=== PATIENT | male | born 1940 | race Caucasian/White ===

== ENCOUNTER 2017-02-12 08:00 | Observation (INO) ==
--- NOTE | 2017-02-12 07:58 | Emergency Department Note ---
Disposition Clinical Impression: Chest pain Qualifiers: Chest pain type: unspecified Qualified Code(s): R07.9 - Chest pain, unspecified Disposition: Admitted As Inpatient Chest Pain HPI - General Chief Complaint: ED Chest Pain Stated Complaint: chest and arm pain Time Seen by Provider: 02/12/17 07:40 Source: patient, family, EMS Mode of arrival: EMS Limitations: no limitations Vital Signs Reviewed: Yes Nursing Notes Reviewed: Yes - History of Present Illness HPI Narrative: Patient presents for evaluation of left-sided chest pain. Radiation to the arm. Pain started on Friday and has been intermittent in nature. Patient describes it as episodes of sharp pain followed by episodes of a less sharp dull ache. Patient's symptoms have not been correlated to any certain exacerbating factor. Patient states better with rest. Patient states associated difficult to getting his breath. Radiation of pain to the arm this morning had his concerned about possible cardiac etiology. Patient has no previous history of heart disease. He does have a history of vascular problems in his lower extremities which he sees Dr. Carreno and placed on aspirin and Plavix. Patient does have a history of a recent fall little over a week ago that was seen and evaluated in the emergency department and diagnosed with a thoracic spine fracture. The patient is attempting to be scheduled for a possible kyphoplasty. is concerned because he needs come off his Plavix. They are waiting to discuss with vascular surgery if this is a good idea. - Related Data Home Medications Medication Instructions Recorded Confirmed Atenolol 100 mg PO DAILY 02/12/17 02/12/17 Atorvastatin Calcium [Lipitor] 20 mg PO QPM 02/12/17 02/12/17 Clopidogrel [Plavix] 75 mg PO DAILY 02/12/17 02/12/17 Cyclobenzaprine [Flexeril] 10 mg PO BID PRN 02/12/17 02/12/17 Ferrous Sulfate [Iron] 325 mg PO BID 02/12/17 02/12/17 HYDROcodone/Acet 5/325 mg [[place] 1 tab PO Q4-6H PRN 02/12/17 02/12/17 5-325 mg] Levothyroxine [Synthroid] 150 mcg PO DAILY 02/12/17 02/12/17 Lisinopril [Zestril] 40 mg PO DAILY 02/12/17 02/12/17 Meloxicam [Mobic] 7.5 mg PO DAILY 02/12/17 02/12/17 Ropinirole HCl [Requip] 0.25 mg PO HS 02/12/17 02/12/17 Tamsulosin [Flomax] 0.4 mg PO DAILY 02/12/17 02/12/17 Xyzal 5 mg PO DAILY 02/12/17 clonazePAM [Klonopin] 0.5 mg PO DAILY 02/12/17 02/12/17 hydroCHLOROthiazide 25 mg PO DAILY 02/12/17 02/12/17 [Hydrochlorothiazide] Allergies Allergy/AdvReac Type Severity Reaction Status Date / Time No Known Allergies Allergy Verified 02/12/17 08:40 Review of Systems: CONSTITUTIONAL: No weight loss, fever, chills, weakness or fatigue. HEENT: Eyes: No visual changes. Ears, Nose, Throat: No hearing loss, difficulty talking or unable to swallow. SKIN: No rash or itching. CARDIOVASCULAR: Chest pain with radiation to left arm RESPIRATORY: No shortness of breath, cough or sputum. GASTROINTESTINAL: No anorexia, nausea, vomiting or diarrhea. No abdominal pain or blood. GENITOURINARY: No burning on urination or hematuria. NEUROLOGICAL: No headache, dizziness, syncope, paralysis, ataxia, numbness or tingling in the extremities. No change in bowel or bladder control. MUSCULOSKELETAL: No muscle pain, back pain, joint pain or stiffness. HEMATOLOGIC: No bleeding or bruising. LYMPHATICS: No enlarged lymphnodes. PSYCHIATRIC: No change to depression or anxiety. ENDOCRINOLOGIC: No reports of heat or cold intolerance, Polyuria ALLERGIES: No history of asthma, hives, eczema or rhinitis. Chest Pain PMH - Past Medical History Medical history: Reports: hyperlipidemia, hypertension Surgical history: Reports: non-contributory Psychiatric history: Reports: no psych history - Social History Smoking Status: Never smoker Alcohol use: Reports: none, occasionally Drug use: Reports: none Physical Exam General: Well appearing, nontoxic, no acute distress Head: Normocephalic Atraumatic Eyes: PERRL, EOMI ENT: Airway patent, no stridor Neck: supple, no meningismus Chest: Lungs clear to auscultation bilateral Cardiac: Regular rate and rhythm, no murmurs, rubs or gallops Abdomen: soft, nontender, nondistended; no guarding, rebound, or tenderness to percussion Musculoskeletal: Calves symmetric, nontender, no palpable cord; patient has no tenderness to palpation of the anterior, lateral aspect of the chest or back. Only panic elicited was with Skin: No rash, normal skin tone Neuro: Alert and Oriented to person, place, and time; No focal deficit, CN 2-12 symmetric and intact Course - Reevaluation(s) Reevaluation #1: Patient has no episode of what he is describing as a sharp chest pain radiating to his back. Patient states pain is severe and wants pain medicine immediately. Morphine has been ordered. Reevaluation #2: The patient was walked to the restroom. Upon walking back he will had to be placed on his cot and will back secondary to the pain that he was having. The patient is a poor historian and some is now stating that he is unsure what is causing his pain. He was specific about this being chest pain earlier on arrival. Patient's history is complicated with fact previous fall and trauma. Patient has been more balance but has no focal deficits on exam today. 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 We will perform a CTA of his chest and abdomen to rule out dissection. Patient will then be admitted for further evaluation of chest pain. Reevaluation #3: Patient has complained of several episodes of intermittent severe chest pain has been treated with multiple doses of morphine. Patient is also had back pain. His CTA is negative. Patient is been accepted by the hospitalist service. - Consultations Consultation #1: Dr. Fofana accepts. Vital Signs Temperature 97.6 F 02/12/17 07:44 Pulse Rate 77 02/12/17 07:44 Respiratory Rate 14 02/12/17 07:44 Blood Pressure 169/76 02/12/17 07:44 O2 Sat by Pulse Oximetry 98 02/12/17 07:44 Temperature 97.6 F 02/12/17 07:44 Pulse Rate 65 02/12/17 11:50 Respiratory Rate 14 02/12/17 11:50 Blood Pressure 129/72 02/12/17 11:50 O2 Sat by Pulse Oximetry 97 02/12/17 11:50 Oxygen Delivery Oxygen Delivery Room Air Chest Pain - Lab Data Result diagrams: 02/12/17 08:08 02/12/17 08:08 Lab Results 02/12/17 02/12/17 02/12/17 Range/Units 08:08 08:08 08:08 WBC 9.1 (4.3-11.1) K/mcL RBC 3.99 L (4.19-5.50) M/mcL Hgb 12.7 L (12.9-16.9) g/dL Hct 37.6 (37.5-50.1) % MCV 94.2 (83.0-100.0) fL MCH 31.8 (28.0-33.3) pg MCHC 33.8 (31.6-35.5) g/dL RDW 14.1 (11.5-14.5) % Plt Count 224 (140-400) K/mcL MPV 9.1 L (9.4-12.4) fL Immature Gran % 3.3 (0-4) % Seg Neutrophils % 64.2 % Lymphocytes % 19.4 % Monocytes % 9.7 % Eosinophils % 2.7 % Basophils % 0.7 % Neutrophils # 5.8 (1.6-8.9) K/mcL Lymphocytes # 1.8 (0.6-4.6) K/mcL Monocytes # 0.9 (0.0-1.3) K/mcL Eosinophils # 0.2 (0.0-0.6) K/mcL Basophils # 0.1 (0.0-0.2) K/mcL PT 10.5 (9.4-12.1) Seconds INR 1.0 APTT 26.1 (26.0-36.0) Seconds Sodium (136-145) mEq/L Potassium (3.5-4.5) mEq/L Chloride (98-109) mEq/L Carbon Dioxide (19-29) mEq/L BUN (8-26) mg/dL Creatinine (0.72-1.25) mg/dL Est GFR ( Amer) (> 60) Est GFR (Non-Af Amer) (> 60) BUN/Creatinine Ratio (6-26) Glucose (70-99) mg/dL Calculated Osmolality (280-300) Calcium (8.6-10.8) mg/dL Troponin I (0-0.03) ng/mL B-Natriuretic Peptide 64 (0-100) pg/mL 02/12/17 02/12/17 Range/Units 08:08 08:08 WBC (4.3-11.1) K/mcL RBC (4.19-5.50) M/mcL Hgb (12.9-16.9) g/dL Hct (37.5-50.1) % MCV (83.0-100.0) fL MCH (28.0-33.3) pg MCHC (31.6-35.5) g/dL RDW (11.5-14.5) % Plt Count (140-400) K/mcL MPV (9.4-12.4) fL Immature Gran % (0-4) % Seg Neutrophils % % Lymphocytes % % Monocytes % % Eosinophils % % Basophils % % Neutrophils # (1.6-8.9) K/mcL Lymphocytes # (0.6-4.6) K/mcL Monocytes # (0.0-1.3) K/mcL Eosinophils # (0.0-0.6) K/mcL Basophils # (0.0-0.2) K/mcL PT (9.4-12.1) Seconds INR APTT (26.0-36.0) Seconds Sodium 131 L (136-145) mEq/L Potassium 4.2 (3.5-4.5) mEq/L Chloride 93 L (98-109) mEq/L Carbon Dioxide 29 (19-29) mEq/L BUN 18 (8-26) mg/dL Creatinine 0.96 (0.72-1.25) mg/dL Est GFR ( Amer) > 60 (> 60) Est GFR (Non-Af Amer) > 60 (> 60) BUN/Creatinine Ratio 19 (6-26) Glucose 112 H (70-99) mg/dL Calculated Osmolality 275 L (280-300) Calcium 9.8 (8.6-10.8) mg/dL Troponin I 0.00 (0-0.03) ng/mL B-Natriuretic Peptide (0-100) pg/mL Attestation Statement - Attestation Attestation: I examined this patient and my medical decision-making was reviewed with the Resident Physician. I agree with the documented findings, disposition and treatment plan as described except to the extent set forth below. Patient to the emergency department complaining of left-sided chest pain. Patient states the pains are left-sided his chest and radiates to the front. He does have a remote history of a fall in a T2 compression fracture. He is under the care of a automated logistics specialist in [place] for this. He is scheduled to have a procedure done soon. Patient has no history of coronary disease. He does have a history of peripheral arterial disease with an abnormal JOSE MARTIN in his left leg. Patient's pain-free on his arrival here. Exam shows him in no distress. He has no reducible tenderness over his spine on our evaluation. Plan. Cardiac workup.
[~2017-02-12 08:00] MED LIST: Aspirin 81 MG TAB.CHEW PO ONE
[2017-02-12] MEDS ORDERED: *HR* Morphine 2 MG/ML SYRINGE IVP ONE (08:01)
[2017-02-12] MEDS ORDERED: Ondansetron 4 MG/2 ML VIAL IVP ONE (08:01)
[2017-02-12 08:24] LABS: Basophils # 0.1 K/mcL (0.0-0.2); Basophils % 0.7 %; Eosinophils # 0.2 K/mcL (0.0-0.6); Eosinophils % 2.7 %; Hematocrit 37.6 % (37.5-50.1); Hemoglobin 12.7 g/dL (12.9-16.9); Immature Granulocytes % 3.3 % (0-4); Lymphocytes # 1.8 K/mcL (0.6-4.6); Lymphocytes % 19.4 %; Mean Corpuscular HGB Conc 33.8 g/dL (31.6-35.5); Mean Corpuscular Hemoglobin 31.8 pg (28.0-33.3); Mean Corpuscular Volume 94.2 fL (83.0-100.0); Mean Platelet Volume 9.1 fL (9.4-12.4); Monocytes # 0.9 K/mcL (0.0-1.3); Monocytes % 9.7 %; Neutrophils # 5.8 K/mcL (1.6-8.9); Platelet Count 224 K/mcL (140-400); Red Blood Count 3.99 M/mcL (4.19-5.50); Red Cell Distribution Width 14.1 % (11.5-14.5); Segmented Neutrophils % 64.2 %
[2017-02-12 08:32] LABS: Prothrombin Time 10.5 Seconds (9.4-12.1)
[2017-02-12 08:34] LABS: Activated Partial Thrombo Time 26.1 Seconds (26.0-36.0)
[2017-02-12 08:38] LABS: BUN/Creatinine Ratio 19 (6-26); Blood Urea Nitrogen 18 mg/dL (8-26); Calcium 9.8 mg/dL (8.6-10.8); Carbon Dioxide 29 mEq/L (19-29); Chloride 93 mEq/L (98-109); Glucose 112 mg/dL (70-99); Osmolality,Calculated 275 (280-300); Potassium 4.2 mEq/L (3.5-4.5); Sodium 131 mEq/L (136-145); eGFR For African Americans > 60 (> 60); eGFR For Non-African Americans > 60 (> 60)
[2017-02-12] MEDS ORDERED: *HR* Morphine 2 MG/ML SYRINGE IVP PRN ×2 (09:16→17:18)
[2017-02-12] MEDS: Nitroglycerin 0.4 MG TAB.SUBL SL PRN ×2 (09:25→17:34)
--- NOTE | 2017-02-12 11:34 | Internal Med History&Physical ---
Date of Encounter: 02/12/17 Time of Encounter: 11:31 Assessment and Plan (1) PVD (peripheral vascular disease) Current visit: Yes Status: Acute Continue Plavix (2) Hypertension Current visit: Yes Status: Acute Continue home blood pressure medications Qualifiers: Qualified Code(s): I10 - Essential (primary) hypertension (3) Chest pain Current visit: Yes Status: Acute Electrocardiogram shows no ST segment shifts. Will Check serial troponin. Cardiology consultation Qualifiers: Chest pain type: unspecified Qualified Code(s): R07.9 - Chest pain, unspecified (4) Hyponatremia Current visit: Yes Status: Acute Mild hyponatremia related to hydrochlorothiazide therapy (5) T2 vertebral fracture Current visit: Yes Status: Acute Patient was evaluated by spine surgeon who plan to kyphoplasty. Qualifiers: Qualified Code(s): S22.029A - Unspecified fracture of second thoracic vertebra, initial encounter for closed fracture Internal Medicine - H&P: HPI Chief complaint: chest pain History of present illness: Mr. Vasquez is a 76 year old male with a history of hypertension, dyslipidemia, peripheral vascular disease presents to the emergency room today with the main component of chest pain. At 8 PM after the patient woke up he started experiencing left inframammary chest pain radiating to the left arm lasting for approximately 2 minutes and resolved spontaneously. He had several of these episodes in decided to come to emergency room for further evaluation. He denies any relational exertion to the pain. Denies any prior similar episodes. He has been complaining also pain in the left scapular [place]. He had a fall about a week ago and sustained fracture of 2nd thoracic vertebral and has been complaining of intermittent back pain and left scapular pain since then. Past Med Surg Social Fam HX - Past Medical History Medical history: hyperlipidemia, hypertension Psychiatric history: no psych history - Past Surgical History Surgical History: non-contributory - Social History Smoking Status: Never smoker Smokeless Tobacco Status: No Alcohol use: none, occasionally Drug use: none Internal Medicine - H&P: Meds Atenolol 100 mg PO DAILY 02/12/17 [History] Atorvastatin Calcium [Lipitor] 20 mg PO QPM 02/12/17 [History] Clopidogrel [Plavix] 75 mg PO DAILY 02/12/17 [History] Cyclobenzaprine [Flexeril] 10 mg PO BID PRN 02/12/17 [History] Ferrous Sulfate [Iron] 325 mg PO BID 02/12/17 [History] HYDROcodone/Acet 5/325 mg [[place] 5-325 mg] 1 tab PO Q4-6H PRN 02/12/17 [History] Levothyroxine [Synthroid] 150 mcg PO DAILY 02/12/17 [History] Lisinopril [Zestril] 40 mg PO DAILY 02/12/17 [History] Meloxicam [Mobic] 7.5 mg PO DAILY 02/12/17 [History] Ropinirole HCl [Requip] 0.25 mg PO HS 02/12/17 [History] Tamsulosin [Flomax] 0.4 mg PO DAILY 02/12/17 [History] Xyzal 5 mg PO DAILY 02/12/17 [History] clonazePAM [Klonopin] 0.5 mg PO DAILY 02/12/17 [History] hydroCHLOROthiazide [Hydrochlorothiazide] 25 mg PO DAILY 02/12/17 [History] 3 Allergy/AdvReac Type Severity Reaction Status Date / Time No Known Allergies Allergy Verified 02/12/17 08:40 All Systems PM: A 10-system review of systems was performed and is negative for pertinent findings except as documented above in the HPI. Review of systems: 10 point review of systems is negative except for HPI - Constitutional Vitals: Temp Pulse Resp BP Pulse Ox 97.6 F 76 14 155/72 97 02/12/17 07:44 02/12/17 10:41 02/12/17 10:41 02/12/17 10:41 02/12/17 10:41 Exam: Gen.: patient is alert oriented times 3 cardiac: normal S1 S2 no additional sounds or murmurs chest: no active wheezing or bronchial breathing abdomen soft nontender nondistended normal bowel sounds lower extremity no swelling. Neuro: no new focal deficits Internal Med - H&P Results - Labs CBC & Chem 7: 02/12/17 08:08 02/12/17 08:08 Labs: Short CBC 02/12/17 Range/Units 08:08 WBC 9.1 (4.3-11.1) K/mcL Hgb 12.7 L (12.9-16.9) g/dL Hct 37.6 (37.5-50.1) % Plt Count 224 (140-400) K/mcL Neutrophils # 5.8 (1.6-8.9) K/mcL BMP 02/12/17 08:08 Sodium 131 L Potassium 4.2 Chloride 93 L Carbon Dioxide 29 BUN 18 Creatinine 0.96 Glucose 112 H Calcium 9.8 Cardiac Enzymes 02/12/17 Range/Units 08:08 Troponin I 0.00 (0-0.03) ng/mL - Impressions ITS Impressions Chest X-Ray 02/12/17 07:54 IMPRESSION: No acute abnormality. D/ / 02/12/2017 08:06:46 Neil Brownlee MD / emily Interpreting Provider: Neil Brownlee MD Abdomen/Pelvis CTA 02/12/17 08:49 IMPRESSION: No evidence of thoracic aortic aneurysm or thoracic aortic dissection. No evidence of abdominal aortic aneurysm or abdominal aortic dissection. Status post cyst stenting of the left common iliac artery, appears patent. Moderate atherosclerotic disease throughout the thoracic aorta, abdominal aorta, and major and major branches. No evidence of aortic hematoma. Mild interval vertebral body height loss involving T2 vertebral body compression fracture, without significant retropulsion into spinal canal. Small nonspecific sclerotic lesion within the T4 vertebral body. Consider correlation with a nuclear medicine bone scan. Mild nonspecific interlobular septal thickening may represent component of pulmonary interstitial edema. Chronic appearing bilateral rib fractures. No evidence of pneumothorax. Moderate colonic stool burden. Moderate stool within the rectal vault. D/ / Jordan Zamora MD / Jordan Zamora MD Interpreting Provider: Jordan Zamora MD Chest CTA 02/12/17 08:55
[2017-02-12 13:27] LABS: Basophils # 0.1 K/mcL (0.0-0.2); Basophils % 0.7 %; Eosinophils # 0.1 K/mcL (0.0-0.6); Eosinophils % 1.2 %; Hematocrit 36.6 % (37.5-50.1); Hemoglobin 12.4 g/dL (12.9-16.9); Immature Granulocytes % 2.1 % (0-4); Lymphocytes # 1.3 K/mcL (0.6-4.6); Lymphocytes % 15.3 %; Mean Corpuscular HGB Conc 33.9 g/dL (31.6-35.5); Mean Corpuscular Volume 94.3 fL (83.0-100.0); Mean Platelet Volume 9.3 fL (9.4-12.4); Monocytes # 0.7 K/mcL (0.0-1.3); Neutrophils # 6.2 K/mcL (1.6-8.9); Platelet Count 215 K/mcL (140-400); Red Blood Count 3.88 M/mcL (4.19-5.50); Red Cell Distribution Width 14.1 % (11.5-14.5); Segmented Neutrophils % 72.7 %
--- NOTE | 2017-02-12 17:35 | Electrocardiograph Report ---
[facility] Test Date: 2017-02-12 Pat Name: Arjun Vasquez Department: 103 Room: 2A42 Gender: M Strip Catcher: MSC : 1940 Requested By: Nghia Haney Order Number: [id number] Reading MD: Anshu Avendaño MD Measurements Intervals [place] Rate: 73 P: 70 NE: 197 QRS: 26 QRSD: 98 T: 38 QT: 370 QTc: 395 Interpretive Statements SINUS RHYTHM SEPTAL MYOCARDIAL INFARCTION [40+ ms Q WAVE IN V1/V2], OF INDETERMINATE AGE INTERPRETATION BASED ON A DEFAULT AGE OF 40 YEARS Electronically Signed On 02-12-2017 17:33:41 EDT by Anshu Avendaño MD
[2017-02-12] MEDS: *HR* HYDROcodone/Acet 5/325 mg TABLET PO PRN (18:23)
[2017-02-12] MEDS ORDERED: rOPINIRole 0.25 MG TABLET PO SCH (21:00)
[2017-02-12] MEDS: *HR* Morphine 2 MG/ML SYRINGE IVP PRN (22:20)
[2017-02-13] MEDS: *HR* Morphine 2 MG/ML SYRINGE IVP PRN (00:22)
[2017-02-13] MEDS ORDERED: *HR* HYDROmorphone (PF) 1 MG/ML SYRINGE IVP PRN (00:27)
[2017-02-13] MEDS: *HR* HYDROcodone/Acet 5/325 mg TABLET PO PRN (03:29)
[2017-02-13 06:07] LABS: BUN/Creatinine Ratio 19 (6-26); Blood Urea Nitrogen 16 mg/dL (8-26); Carbon Dioxide 27 mEq/L (19-29); Chloride 96 mEq/L (98-109); Glucose 119 mg/dL (70-99); Osmolality,Calculated 274 (280-300); Potassium 4.4 mEq/L (3.5-4.5); Sodium 131 mEq/L (136-145); eGFR For African Americans > 60 (> 60); eGFR For Non-African Americans > 60 (> 60)
[2017-02-13] MEDS ORDERED: *HR* HYDROcodone/Acet 5/325 mg TABLET PO PRN (08:23)
[2017-02-13] MEDS ORDERED: Aspirin 81 MG TAB.CHEW PO SCH (09:00)
[2017-02-13] MEDS ORDERED: Lisinopril 20 MG TABLET PO SCH (09:00)
[2017-02-13] MEDS ORDERED: clonazePAM 0.5 MG TABLET PO SCH (09:00)
[2017-02-13] MEDS ORDERED: *HR* HYDROcodone/Acet 10/325 mg TABLET PO PRN (09:51)
[2017-02-13 15:53] VITALS: BP 137/76
--- NOTE | 2017-02-13 16:06 | Discharge Summary ---
Date of Encounter: 02/13/17 Time of Encounter: 09:15 - Discharge Diagnosis (1) Left arm pain Priority: Primary Status: Acute (2) Chest pain Priority: Primary Status: Ruled-out Qualifiers: Chest pain type: unspecified Qualified Code(s): R07.9 - Chest pain, unspecified (3) Hypothyroidism Priority: Secondary Status: Chronic Qualifiers: Hypothyroidism type: unspecified Qualified Code(s): E03.9 - Hypothyroidism , unspecified (4) PVD (peripheral vascular disease) Priority: Secondary Status: Chronic (5) Hypertension Priority: Secondary Status: Chronic Qualifiers: Hypertension type: essential hypertension Qualified Code(s): I10 - Essential (primary) hypertension (6) T2 vertebral fracture Priority: Secondary Status: Chronic Qualifiers: Encounter type: subsequent encounter Fracture type: closed Fracture morphology: wedge compression Fracture healing: with routine healing Qualified Code(s): S22.020D - Wedge compression fracture of second thoracic vertebra, subsequent encounter for fracture with routine healing - Discharge Medications Home Medications: Atenolol 100 mg PO DAILY 02/12/17 [History] Atorvastatin Calcium [Lipitor] 20 mg PO QPM 02/12/17 [History] Clopidogrel [Plavix] 75 mg PO DAILY 02/12/17 [History] Cyclobenzaprine [Flexeril] 10 mg PO BID PRN 02/12/17 [History] Ferrous Sulfate [Iron] 325 mg PO BID 02/12/17 [History] HYDROcodone/Acet 5/325 mg [[place] 5-325 mg] 1 tab PO Q4-6H PRN 02/12/17 [History] Levothyroxine [Synthroid] 150 mcg PO DAILY 02/12/17 [History] Lisinopril [Zestril] 40 mg PO DAILY 02/12/17 [History] Meloxicam [Mobic] 7.5 mg PO DAILY 02/12/17 [History] Ropinirole HCl [Requip] 0.25 mg PO HS 02/12/17 [History] Tamsulosin [Flomax] 0.4 mg PO DAILY 02/12/17 [History] Xyzal 5 mg PO DAILY 02/12/17 [History] clonazePAM [Klonopin] 0.5 mg PO DAILY 02/12/17 [History] hydroCHLOROthiazide [Hydrochlorothiazide] 25 mg PO DAILY 02/12/17 [History] Polyethylene Glycol 3350 [MiraLAX] 17 gm PO DAILY #10 powd.pack 02/18/17 [Rx] Allergies/Adverse Reactions: 3 Allergy/AdvReac Type Severity Reaction Status Date / Time No Known Allergies Allergy Verified 02/18/17 17:49 Procedures/tests Complete & Pending: Procedures Performed prior 72 hours Category Date Time Status ECG 12 lead ECG [ECG] Routine Y 02/12/17 19:30 Completed ECG 12 lead ECG [ECG] Routine Y 02/13/17 00:27 Completed Date of admission: 02/12/17 11:40 Primary care physician: Pati Vásquez Consults: 02/13/17 08:59 Consult to Occupational Therapy [CONS] Stat Comment: Evaluate, develop and implement POC Reason for Consult: POSSIBLE NEED FOR PHYSICAL THERAPY AT DISCHARGE Consult to Physical Therapy [CONS] Stat Comment: Evaluate, develop and implement POC Reason for Consult: POSSIBLE PHYSICAL THERAPY NEEDED FOR DISCHARGE Discharging clinician: Cee Landis Anticipated date of discharge: 02/13/17 - Patient Status Disposition: Home, Self-Care Condition: Fair Functional capacity at discharge: independent ambulation Overall status at discharge: patient is progressing back to baseline - Discharge Instructions Follow Up With: Pati Vásquez MD [Primary Care Provider] - 03/03/17 3:15 pm Additional Instructions: F/up with Spine surgeon in [place]. IF SYMPTOMS WORSEN, CALL YOUR PCP, CALL 9-1-1, OR GO TO THE NEAREST EMERGENCY ROOM. - Diet and Activity Activity: increase activity as tolerated Diet: low fat, low cholesterol, low salt diet Hospital course: Mr. Vasquez is a 76 year old male with the above medical problems, admitted with left arm and chest wall pain. He was initially worked up for cardiac etiology of chest pain- EKG, Telemetry, serial Troponins remained negative. He could not lie down flat for a nuclear stress test due to subacute back pain from a recent fall. Of note, patient sustained a mechanical fall about 10 days ago and noted to have T2 compression fracture, for which he follows with Spine surgery in [place] and is scheduled for outpatient kyphoplasty and was discharged home on vycodin. He now developed severe left arm and chest wall pain, that seems non- cardiac and musculoskeletal likely from blunt trauma from his recent fall. CTA chest/abdomen/pelvis showed no PE, thoracic or abdominal aortic aneurysm or dissection but did reveal T2 fracture and multiple old B/L rib fractures, subacute left 3rd rib fracture. XRay of left humerus showed no fracture. His pain is currently well-controlled on oral pain medications, PT/OT evaluation recommend outpatient PT and patient is interested in following with Spine Surgery in [place]. He is otherwise medically stable for discharge. - Time Spent with Patient Total time spent providing and/or coordinating discharge services: Greater than 30 minutes (40 min) - Constitutional Vitals: Temp Pulse Resp BP Pulse Ox 98.2 F 66 17 137/76 97 02/13/17 15:49 02/13/17 15:49 02/13/17 15:49 02/13/17 15:49 02/13/17 15:49 General appearance: Present: mild distress, A&O X 3, answers questions appropriately - Extremities Exam Extremities exam: Present: full ROM (restricted in left elbow), warm, radial pulses palpable and symmetrical. Absent: calf tenderness, cyanotic, pedal edema Additional comments: tenderness over left posterolateral upper arm - VTE Documentation of Mechanical Device: Intermittent pneumatic compression device
--- NOTE | 2017-02-15 11:05 | Electrocardiograph Report ---
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
--- NOTE | 2017-02-15 11:14 | Electrocardiograph Report ---
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
[2017-02-16 11:57] LABS: CK-BB (CK isoenzymes) 0 % (0-0); CK-MB (CK isoenzymes) 0 % (0-4); CK-MM (CK-isoenzymes) 100 % (96-100)
[2017-02-16 11:57] LABS: CK-BB (CK isoenzymes) 0 % (0-0); CK-MB (CK isoenzymes) 0 % (0-4); CK-MM (CK-isoenzymes) 100 % (96-100)
[2017-02-17 08:20] LABS: CK Total (Ck Isoenzymes) 129 U/L (20-200)
[2017-02-17 08:20] LABS: CK Total (Ck Isoenzymes) 126 U/L (20-200)
== END 2017-02-13 18:30 | disposition home or self-care (01) ==
LOC: EMEROO 08:00 → 2ANU 08:00 → SUATTDRO 11:40 → 2ANU 12:07
PROVIDERS: ADMIT Hospitalist; ATTEND Internal Medicine